=== PATIENT | male | born 1960 | race Two or more races ===

== ENCOUNTER 2019-02-18 05:27 | Day surgery (SDC) | payer OTHER ==
[~2019-02-18 05:27] MED LIST: LEVOTHYROXINE25 MCG; LOSARTAN-HCTZ1 EAC2
[2019-02-18] MEDS ORDERED: TRAM1TAB98 PO (13:47)
[2019-02-18] MEDS ORDERED: DUI500 PO (13:47)
== END 2019-02-18 16:45 | disposition home or self-care (01) ==
LOC: CIR.AMB 05:27
DX: M23.321 Other meniscus derangements, posterior horn of medial meniscus, right knee (principal); M65.861 Other synovitis and tenosynovitis, right lower leg